=== PATIENT | female | born 1990 | race African-American/Black ===

== ENCOUNTER 2017-05-24 13:52 | Emergency (ER) | payer MEDICAID ==
[~2017-05-24] VITALS: Ht 172.7 cm; Wt 127.0 kg
[~2017-05-24 13:52] MED LIST: ALBUTEROL SULF8.5 GM INH; IBUPROFEN600 MG ORAL; NORCO 5-325 TA1 EACH ORAL; ZITHROMAX250 MG ORAL
[2017-05-24 14:18] VITALS: BP 149/95
[2017-05-24 14:44] LABS: BASOPHILS % (AUTO) 0.7 % (0.0-2.0); EOSINOPHILS % (AUTO) 2.9 % (0.0-3.0); HEMATOCRIT 33.3 % (37.0-47.0); MEAN CORPUSCULAR VOLUME 72 FL (80-99); MONOCYTES % (AUTO) 5.5 % (1.0-10.0); PLATELET COUNT 290 K/UL (150-450); RED BLOOD COUNT 4.64 M/UL (4.20-5.40); RED CELL DISTRIBUTION WIDTH 15.2 % (11.6-14.8); WHITE BLOOD COUNT 8.5 K/UL (4.8-10.8)
--- NOTE | 2017-05-24 15:08 | Diagnostic Imaging Report ---
Indication: Chest pain Comparison: 06/04/2013 A single view chest radiograph was obtained. Findings: Cardiomediastinal appearance is within normal limits for age. Pulmonary vascularity is appropriate. The diaphragmatic contour is smooth and costophrenic angles are sharp. No pleural effusions are identified. The bones are unremarkable. Impression: No acute findings
[2017-05-24 15:22] LABS: ANION GAP 9 mmol/L (5-15); BLOOD UREA NITROGEN 8 mg/dL (7-18); CALCIUM 9.2 MG/DL (8.5-10.1); CARBON DIOXIDE 29 MMOL/L (21-32); CHLORIDE 100 MMOL/L (98-107); CREATININE 0.8 MG/DL (0.55-1.30); SODIUM 138 MMOL/L (136-145)
[2017-05-24 15:32] VITALS: BP 135/75
[2017-05-24 15:36] LABS: ALANINE AMINOTRANSFERASE 26 U/L (12-78); ALBUMIN 3.4 G/DL (3.4-5.0); ALBUMIN/GLOBULIN RATIO 0.8 (1.0-2.7); ALKALINE PHOSPHATASE 135 U/L (46-116); ASPARTATE AMINO TRANSFERASE 9 U/L (15-37); BILIRUBIN,TOTAL 0.2 MG/DL (0.2-1.0); CKMB < 0.5 NG/ML (0.0-3.6); CREATINE KINASE 55 U/L (26-308)
[2017-05-24] MEDS ORDERED: IBUPROFEN600 MG ORAL (15:37)
[2017-05-24] MEDS ORDERED: KEFLEX500 MG ORAL (15:37)
[2017-05-24 15:44] LABS: APPEARANCE,URINE SLIGHTLY CLOUDY; BILIRUBIN, URINE NEGATIVE (NEGATIVE); COLOR,URINE PALE YELLOW; GLUCOSE, URINE (UA) 4+ (NEGATIVE); KETONES,URINE NEGATIVE (NEGATIVE); LEUKOCYTE ESTERASE ,URINE 2+ (NEGATIVE); NITRITE,URINE POSITIVE (NEGATIVE); PH,URINE 5 (4.5-8.0); PROTEIN,URINE 1+ (NEGATIVE); UROBILINOGEN,URINE NORMAL MG/DL (0.0-1.0)
--- NOTE | 2017-05-24 16:32 | Emergency Room Report ---
History of Present Illness General Chief Complaint: Chest Pain Source: Patient Present Illness HPI 27-year-old female presents ED waiting of chest pain times one week. States pain is localized to right side, worse with deep breaths. Also complains of pain in the shoulders bilaterally. 7/10, dull, nonradiating. Denies shortness of breath. Patient states history of diabetes. Patient is also complaining of a "cyst" to her left sided neck underneath her ear. Denies any pain. States has been there for one year. Denies alcohol or drug use. no other aggravating relieving factors. Denies any other associated symptoms Allergies: Coded Allergies: No Known Allergies (Unverified , 06/04/13) Patient History Past Medical History: DM, psych hx Past Surgical History: none Pertinent Family History: none Social History: Denies: smoking, alcohol use, drug use Last Menstrual Period: on period Now: No Immunizations: UTD Reviewed Nursing Documentation: PMH: Agreed, PSxH: Agreed Nursing Documentation-PMH Past Medical History: No History, Except For Hx Diabetes: Yes History Of Psychiatric Problem: Yes - Anxiety Review of Systems All Other Systems: negative except mentioned in HPI Physical Exam Vital Signs Date Time Temp Pulse Resp B/P (MAP) Pulse Ox O2 Delivery O2 Flow Rate FiO2 05/24/17 14:08 99.0 77 16 149/95 100 Room Air Sp02 EP Interpretation: reviewed, normal General Appearance: no apparent distress, alert, GCS 15, non-toxic Head: normocephalic, atraumatic Eyes: bilateral eye normal inspection, bilateral eye PERRL ENT: hearing grossly normal, normal pharynx, no angioedema, normal voice Neck: full range of motion, supple/symm/no masses Respiratory: lungs clear, normal breath sounds, speaking full sentences, other - reproducible R anterior chest wall pain Cardiovascular #1: regular rate, rhythm, no edema Cardiovascular #2: 2+ carotid (R), 2+ carotid (L), 2+ radial (R), 2+ radial (L) , 2+ dorsalis pedis (R), 2+ dorsalis pedis (L) Gastrointestinal: normal bowel sounds, non tender, soft, non-distended, no guarding, no rebound Rectal: deferred Genitourinary: normal inspection, no CVA tenderness Musculoskeletal: back normal, gait/station normal, normal range of motion, non- tender Neurologic: alert, oriented x3, responsive, motor strength/tone normal, sensory intact, speech normal Psychiatric: judgement/insight normal, memory normal, mood/affect normal, no suicidal/homicidal ideation Reflexes: 3+ bicep (R), 3+ bicep (L), 3+ tricep (R), 3+ tricep (L), 3+ knee (R) , 3+ knee (L) Skin: well hydrated, other - 1cm area of induration/erythema to under L ear. no fluctuance or discharge Lymphatic: no adenopathy Medical Decision Making Diagnostic Impression: Primary Impression: Abscess of scalp Additional Impression: Chest wall pain ER Course Hospital Course 27-year-old F presents ED complaining of chest pain x 1 week Differential diagnoses include: Rib fracture, PR/unstable angina, contusion, muscle strain Clinical course Patient placed on stretcher. After initial history and physical I ordered labs , EKG, chest x-ray. labs reviewed- glucose > 300, no DKA, troponins negative, no leukocytosis, hemoglobin/hematocrit stable EKG - NSR, no acute ischemic changes interpreted by me Chest x-ray-no cardiomegaly, no rib fracture, no pneumothorax, no acute process Pain is likely muscular which is consistent with my exam. Given patient's obesity and diabetes I believe it was prudent to check labs There is a area of induration and erythema underneath the left ear on the neck. Consistent with abscess. However not amenable to drainage at this time. Chronic x1 year. Recommend warm compresses and antibiotics. I. I feel this is a highly complex case requiring extensive working including EKG/Rhythm strip, Xray/CT/US, Blood/urine lab work, repeat exams while in ED, and administration of strong opiates/narcotics for pain control, admission to hospital or close patient follow up. Diagnosis - chest wall pain, abscess of scalp Stable and discharged to home with Rx Motrin Keflex. Instructed to followup with PMD. Return to ED if symptoms recur or worsen Labs Test 05/24/17 14:30 05/24/17 15:20 White Blood Count 8.5 K/UL (4.8-10.8) Red Blood Count 4.64 M/UL (4.20-5.40) Hemoglobin 10.0 G/DL (12.0-16.0) Hematocrit 33.3 % (37.0-47.0) Mean Corpuscular Volume 72 FL (80-99) Mean Corpuscular Hemoglobin 21.4 PG (27.0-31.0) Mean Corpuscular Hemoglobin Concent 29.9 G/DL (32.0-36.0) Red Cell Distribution Width 15.2 % (11.6-14.8) Platelet Count 290 K/UL (150-450) Mean Platelet Volume 10.4 FL (6.5-10.1) Neutrophils (%) (Auto) 59.0 % (45.0-75.0) Lymphocytes (%) (Auto) 32.0 % (20.0-45.0) Monocytes (%) (Auto) 5.5 % (1.0-10.0) Eosinophils (%) (Auto) 2.9 % (0.0-3.0) Basophils (%) (Auto) 0.7 % (0.0-2.0) Sodium Level 138 MMOL/L (136-145) Potassium Level 4.0 MMOL/L (3.5-5.1) Chloride Level 100 MMOL/L (98-107) Carbon Dioxide Level 29 MMOL/L (21-32) Anion Gap 9 mmol/L (5-15) Blood Urea Nitrogen 8 mg/dL (7-18) Creatinine 0.8 MG/DL (0.55-1.30) Estimat Glomerular Filtration Rate > 60 mL/min (>60) Glucose Level 338 MG/DL (74-106) Calcium Level 9.2 MG/DL (8.5-10.1) Total Bilirubin 0.2 MG/DL (0.2-1.0) Aspartate Amino Transf (AST/SGOT) 9 U/L (15-37) Alanine Aminotransferase (ALT/SGPT) 26 U/L (12-78) Alkaline Phosphatase 135 U/L (46-116) Total Creatine Kinase 55 U/L (26-308) Creatine Kinase MB < 0.5 NG/ML (0.0-3.6) Creatine Kinase MB Relative Index 0.9 Troponin I 0.000 ng/mL (0.000-0.056) Total Protein 7.5 G/DL (6.4-8.2) Albumin 3.4 G/DL (3.4-5.0) Globulin 4.1 g/dL Albumin/Globulin Ratio 0.8 (1.0-2.7) Urine Color Pale yellow Urine Appearance Slightly cloudy Urine pH 5 (4.5-8.0) Urine Specific [place] 1.020 (1.005-1.035) Urine Protein 1+ (NEGATIVE) Urine Glucose (UA) 4+ (NEGATIVE) Urine Ketones Negative (NEGATIVE) Urine Occult Blood 5+ (NEGATIVE) Urine Nitrite Positive (NEGATIVE) Urine Bilirubin Negative (NEGATIVE) Urine Urobilinogen Normal MG/DL (0.0-1.0) Urine Leukocyte Esterase 2+ (NEGATIVE) Urine RBC 10-15 /HPF (0 - 2) Urine WBC 5-10 /HPF (0 - 2) Urine Squamous Epithelial Cells Few /LPF (NONE/OCC) Urine Amorphous Sediment Few /LPF (NONE) Urine Bacteria Many /HPF (NONE) Urine HCG, Qualitative Negative EKG Diagnostic Results Rate: normal Rhythm: NSR ST Segments: no acute changes ASA given to the pt in ED: No Rhythm Strip Diag. Results EP Interpretation: yes Rhythm: NSR, no PVC's, no ectopy Chest X-Ray Diagnostic Results Chest X-Ray Diagnostic Results : Chest X-Ray Ordered: Yes # of Views/Limited/Complete: 1 View Indication: Chest Pain EP Interpretation: Yes Interpretation: no consolidation, no effusion, no pneumothorax, no acute cardiopulmonary disease Impression: No acute disease Electronically Signed by: Electronically signed by Slava Rush MD Last Vital Signs Date Time Temp Pulse Resp B/P (MAP) Pulse Ox O2 Delivery O2 Flow Rate FiO2 05/24/17 15:32 99.0 78 16 135/75 100 Room Air Status: improved Disposition: HOME, SELF-CARE Condition: Stable Scripts Cephalexin* (KEFLEX*) 500 Mg Capsule 500 MG ORAL Q6H, #28 CAP 0 Refills Prov: SLAVA RUSH M.D. 05/24/17 Ibuprofen* (MOTRIN*) 600 Mg Tablet 600 MG ORAL Q8H Y for For Pain, #30 TAB 0 Refills Prov: SLAVA RUSH M.D. 05/24/17 [facility]errals[facility] ([facility]P) Patient Instructions: Abscess, [id number], Chest Wall Pain, [id number] SLAVA RUSH M.D. May 24, 2017 16:32
--- NOTE | 2017-05-25 13:23 | Cardiology Report ---
APPROVED REPORT EKG Measurement Heart [id number] [id number] Normal sinus rhythm Nonspecific T wave abnormality Abnormal ECG
== END 2017-05-24 15:32 | disposition home or self-care (01) ==
LOC: EMR 14:20
DX: R07.89 Other chest pain (principal); L02.811 Cutaneous abscess of head [any part, except face]; E11.9 Type 2 diabetes mellitus without complications; F41.9 Anxiety disorder, unspecified
CPT/HCPCS: 36415; 71045; 80053; 81003; 81025; 82550; 82553; 84484; 85025; 87086; 87181; 93005; 99284

== ENCOUNTER 2018-10-25 15:49 | Emergency (ER) | payer MEDICAID ==
[~2018-10-25] VITALS: Ht 172.7 cm; Wt 129.3 kg
[~2018-10-25 15:49] MED LIST changes: +KEFLEX500 MG ORAL
[2018-10-25 16:00] VITALS: BP 130/63
--- NOTE | 2018-10-25 16:40 | NUR ---
ED Nurse Note: pt walked in c/o rt breast pain mica collins done blood and urine sent to lab.
[2018-10-25] MEDS ORDERED: Vancomycin 1.5gm Premix 275 ML IVPB ONE (16:45)
[2018-10-25 17:29] LABS: APPEARANCE,URINE SLIGHTLY CLOUDY; BASOPHILS % (AUTO) 1.6 % (0.0-2.0); BILIRUBIN, URINE NEGATIVE (NEGATIVE); COLOR,URINE PALE YELLOW; EOSINOPHILS % (AUTO) 2.4 % (0.0-3.0); GLUCOSE, URINE (UA) 4+ (NEGATIVE); HEMATOCRIT 33.5 % (37.0-47.0); HEMOGLOBIN 10.8 G/DL (12.0-16.0); KETONES,URINE NEGATIVE (NEGATIVE); LEUKOCYTE ESTERASE ,URINE 2+ (NEGATIVE); LYMPHOCYTES % (AUTO) 24.4 % (20.0-45.0); MEAN CORPUSCULAR VOLUME 71 FL (80-99); MONOCYTES % (AUTO) 5.2 % (1.0-10.0); NEUTROPHILS % (AUTO) 66.3 % (45.0-75.0); NITRITE,URINE NEGATIVE (NEGATIVE); PH,URINE 6 (4.5-8.0); PLATELET COUNT 360 K/UL (150-450); PROTEIN,URINE 1+ (NEGATIVE); RED BLOOD COUNT 4.73 M/UL (4.20-5.40); RED CELL DISTRIBUTION WIDTH 13.5 % (11.6-14.8); UROBILINOGEN,URINE NORMAL MG/DL (0.0-1.0); WHITE BLOOD COUNT 10.1 K/UL (4.8-10.8)
[2018-10-25 17:39] LABS: ANION GAP 11 mmol/L (5-15); BLOOD UREA NITROGEN 8 mg/dL (7-18); CALCIUM 9.8 MG/DL (8.5-10.1); CARBON DIOXIDE 25 MMOL/L (21-32); CHLORIDE 100 MMOL/L (98-107); CREATININE 0.7 MG/DL (0.55-1.30); POTASSIUM 3.9 MMOL/L (3.5-5.1); SODIUM 136 MMOL/L (136-145)
[2018-10-25 17:44] LABS: ALANINE AMINOTRANSFERASE 19 U/L (12-78); ALBUMIN 3.8 G/DL (3.4-5.0); ALBUMIN/GLOBULIN RATIO 1.1 (1.0-2.7); ALKALINE PHOSPHATASE 139 U/L (46-116); ASPARTATE AMINO TRANSFERASE 10 U/L (15-37); BILIRUBIN,TOTAL 0.2 MG/DL (0.2-1.0); CREATINE KINASE 46 U/L (26-308)
[2018-10-25] MEDS ORDERED: Morphine Sulfate 4mg/ml Inj (IV USE ONLY) IVP ONE ×2 (17:45→23:30)
--- NOTE | 2018-10-25 17:54 | Emergency Room Report ---
History of Present Illness General Chief Complaint: Skin Rash/Abscess Source: Medical Record (Elvira Sher) Present Illness HPI 28-year-old female presents to the emergency department complaining of progressive pain, swelling, erythema and tenderness to the right breast over the course of 2 weeks. Patient reports that last week she was evaluated at an urgent care and placed on Bactrim for cellulitis. Patient states that her symptoms have not resolved she denies fevers but reports chills. Patient states she now has an opening in the skin which is draining that she just found approximately 1 hour ago. Patient denies history of immune compromise. Denies nipple discharge however she states a few months ago she had similar infection that had nipple discharge which she did not get evaluated for and it resolved on her own. She reports pain is exacerbated with palpation or movement she gets some mild relief by holding/lifting the breast up slightly. She denies hx of Cancer, she is not currently breast feeding. Pt. with hx of Dm type 2, supposed to be taking Metformin but is non compliant. (Elvira Sher) Allergies: Coded Allergies: No Known Allergies (Unverified , 06/04/13) Patient History Past Medical History: see triage record, DM Past Surgical History: none Pertinent Family History: none Last Menstrual Period: 10/19/18 Now: No Reviewed Nursing Documentation: PMH: Agreed; PSxH: Agreed (Elvira Sher) Nursing Documentation-PMH Past Medical History: No History, Except For Hx Diabetes: Yes (Elvira Sher) Review of Systems All Other Systems: negative except mentioned in HPI (Elvira Sher) Physical Exam Vital Signs Date Time Temp Pulse Resp B/P (MAP) Pulse Ox O2 Delivery O2 Flow Rate FiO2 10/25/18 16:00 98.2 84 16 130/63 (85) 98 Room Air Sp02 EP Interpretation: reviewed, normal General Appearance: alert, GCS 15, non-toxic, moderate distress Head: normocephalic, atraumatic Eyes: bilateral eye normal inspection, bilateral eye PERRL ENT: hearing grossly normal, normal voice Neck: full range of motion Respiratory: lungs clear, normal breath sounds, speaking full sentences, other - TTP to the right breast, swelling, erythema, induration, warmth of breast tissue and partially the nipple. there is a superficial ulcer which is draining straw colored d/c, no blisters or vesicles. area of erythema approximately 12cm Cardiovascular #1: regular rate, rhythm, no edema Musculoskeletal: back normal, gait/station normal, normal range of motion Neurologic: alert, oriented x3, responsive, motor strength/tone normal, sensory intact, speech normal, grossly normal Psychiatric: judgement/insight normal Skin: no rash, warm/dry, well hydrated, other - Right breast, swelling, erythema, induration, warmth of breast tissue and partially the nipple. there is a superficial ulcer which is draining straw colored d/c, no blisters or vesicles. area of erythema approximately 12cm (Elvira Sher) Medical Decision Making PA Attestation Dr. Dunlap is my supervising Physician whom patient management has been discussed with. (Elvira Sher) Diagnostic Impression: Primary Impression: Breast abscess Additional Impressions: UTI (urinary tract infection) Qualified Codes: N30.01 - Acute cystitis with hematuria Hyperglycemia ER Course 28-year-old female presents to the emergency department complaining of progressive pain, swelling, erythema and tenderness to the right breast over the course of 2 weeks. Patient reports that last week she was evaluated at an urgent care and placed on Bactrim for cellulitis. Patient states that her symptoms have not resolved she denies fevers but reports chills. Patient states she now has an opening in the skin which is draining that she just found approximately 1 hour ago. Patient denies history of immune compromise. Denies nipple discharge however she states a few months ago she had similar infection that had nipple discharge which she did not get evaluated for and it resolved on her own. She reports pain is exacerbated with palpation or movement she gets some mild relief by holding/lifting the breast up slightly. She denies hx of Cancer, she is not currently breast feeding. Pt. with hx of Dm type 2, supposed to be taking Metformin but is non compliant. Ddx considered but are not limited to cellulitis, abscess, cystic acne, necrotizing fasciitis, insect bite. Vital signs: are WNL, pt. is afebrile H&PE are most consistent with Right breast abscess which is failing outpatient oral abx. ORDERS: -CBC: unremarkable -CMP: elevated glucose 300 -Lactic acid: WNL -Troponin: WNL -Blood Cultures: pending. -UA: positive for UTI ED INTERVENTIONS: -IV Vancomycin 1.5g - Morphine 4mg -1 liter NS DISPOSITION: at this time pt. will be admitted to Dr. Rogers for Right breast abscess. Dr. Rogers agreed to admit the pt. and to continue pt. care management. Labs Test 10/25/18 17:00 White Blood Count 10.1 K/UL (4.8-10.8) Red Blood Count 4.73 M/UL (4.20-5.40) Hemoglobin 10.8 G/DL (12.0-16.0) Hematocrit 33.5 % (37.0-47.0) Mean Corpuscular Volume 71 FL (80-99) Mean Corpuscular Hemoglobin 22.8 PG (27.0-31.0) Mean Corpuscular Hemoglobin Concent 32.2 G/DL (32.0-36.0) Red Cell Distribution Width 13.5 % (11.6-14.8) Platelet Count 360 K/UL (150-450) Mean Platelet Volume 8.2 FL (6.5-10.1) Neutrophils (%) (Auto) 66.3 % (45.0-75.0) Lymphocytes (%) (Auto) 24.4 % (20.0-45.0) Monocytes (%) (Auto) 5.2 % (1.0-10.0) Eosinophils (%) (Auto) 2.4 % (0.0-3.0) Basophils (%) (Auto) 1.6 % (0.0-2.0) Urine Color Pale yellow Urine Appearance Slightly cloudy Urine pH 6 (4.5-8.0) Urine Specific [place] 1.020 (1.005-1.035) Urine Protein 1+ (NEGATIVE) Urine Glucose (UA) 4+ (NEGATIVE) Urine Ketones Negative (NEGATIVE) Urine Blood 1+ (NEGATIVE) Urine Nitrite Negative (NEGATIVE) Urine Bilirubin Negative (NEGATIVE) Urine Urobilinogen Normal MG/DL (0.0-1.0) Urine Leukocyte Esterase 2+ (NEGATIVE) Urine RBC 10-15 /HPF (0 - 2) Urine WBC 5-10 /HPF (0 - 2) Urine Squamous Epithelial Cells Many /LPF (NONE/OCC) Urine Bacteria Moderate /HPF (NONE) Sodium Level 136 MMOL/L (136-145) Potassium Level 3.9 MMOL/L (3.5-5.1) Chloride Level 100 MMOL/L (98-107) Carbon Dioxide Level 25 MMOL/L (21-32) Anion Gap 11 mmol/L (5-15) Blood Urea Nitrogen 8 mg/dL (7-18) Creatinine 0.7 MG/DL (0.55-1.30) Estimat Glomerular Filtration Rate > 60 mL/min (>60) Glucose Level 300 MG/DL (74-106) Lactic Acid Level 1.20 mmol/L (0.4-2.0) Calcium Level 9.8 MG/DL (8.5-10.1) Total Bilirubin 0.2 MG/DL (0.2-1.0) Aspartate Amino Transf (AST/SGOT) 10 U/L (15-37) Alanine Aminotransferase (ALT/SGPT) 19 U/L (12-78) Alkaline Phosphatase 139 U/L (46-116) Total Creatine Kinase 46 U/L (26-308) Troponin I 0.000 ng/mL (0.000-0.056) Total Protein 7.4 G/DL (6.4-8.2) Albumin 3.8 G/DL (3.4-5.0) Globulin 3.6 g/dL Albumin/Globulin Ratio 1.1 (1.0-2.7) (Elvira Sher) ER Course Patient presented for left breast pain and swelling. Patient was noted to have what appears to be a ulceration to the right nipple. There appears to be some abscess as well. Patient will be transferred to outside facility for further evaluation and treatment for her breast infection and further evaluation for possible underlying malignancy. Patient appears to be stable for transfer and have been given IV antibiotics in the emergency department. She is also given medications for pain. Patient also noted to be diabetic.Patient was discussed with [facility] who agreed to accept the patient for transfer. Labs Test 10/25/18 17:00 White Blood Count 10.1 K/UL (4.8-10.8) Red Blood Count 4.73 M/UL (4.20-5.40) Hemoglobin 10.8 G/DL (12.0-16.0) Hematocrit 33.5 % (37.0-47.0) Mean Corpuscular Volume 71 FL (80-99) Mean Corpuscular Hemoglobin 22.8 PG (27.0-31.0) Mean Corpuscular Hemoglobin Concent 32.2 G/DL (32.0-36.0) Red Cell Distribution Width 13.5 % (11.6-14.8) Platelet Count 360 K/UL (150-450) Mean Platelet Volume 8.2 FL (6.5-10.1) Neutrophils (%) (Auto) 66.3 % (45.0-75.0) Lymphocytes (%) (Auto) 24.4 % (20.0-45.0) Monocytes (%) (Auto) 5.2 % (1.0-10.0) Eosinophils (%) (Auto) 2.4 % (0.0-3.0) Basophils (%) (Auto) 1.6 % (0.0-2.0) Urine Color Pale yellow Urine Appearance Slightly cloudy Urine pH 6 (4.5-8.0) Urine Specific [place] 1.020 (1.005-1.035) Urine Protein 1+ (NEGATIVE) Urine Glucose (UA) 4+ (NEGATIVE) Urine Ketones Negative (NEGATIVE) Urine Blood 1+ (NEGATIVE) Urine Nitrite Negative (NEGATIVE) Urine Bilirubin Negative (NEGATIVE) Urine Urobilinogen Normal MG/DL (0.0-1.0) Urine Leukocyte Esterase 2+ (NEGATIVE) Urine RBC 10-15 /HPF (0 - 2) Urine WBC 5-10 /HPF (0 - 2) Urine Squamous Epithelial Cells Many /LPF (NONE/OCC) Urine Bacteria Moderate /HPF (NONE) Sodium Level 136 MMOL/L (136-145) Potassium Level 3.9 MMOL/L (3.5-5.1) Chloride Level 100 MMOL/L (98-107) Carbon Dioxide Level 25 MMOL/L (21-32) Anion Gap 11 mmol/L (5-15) Blood Urea Nitrogen 8 mg/dL (7-18) Creatinine 0.7 MG/DL (0.55-1.30) Estimat Glomerular Filtration Rate > 60 mL/min (>60) Glucose Level 300 MG/DL (74-106) Lactic Acid Level 1.20 mmol/L (0.4-2.0) Calcium Level 9.8 MG/DL (8.5-10.1) Total Bilirubin 0.2 MG/DL (0.2-1.0) Aspartate Amino Transf (AST/SGOT) 10 U/L (15-37) Alanine Aminotransferase (ALT/SGPT) 19 U/L (12-78) Alkaline Phosphatase 139 U/L (46-116) Total Creatine Kinase 46 U/L (26-308) Troponin I 0.000 ng/mL (0.000-0.056) Total Protein 7.4 G/DL (6.4-8.2) Albumin 3.8 G/DL (3.4-5.0) Globulin 3.6 g/dL Albumin/Globulin Ratio 1.1 (1.0-2.7) (Blaine Dunlap MD) Last Vital Signs Date Time Temp Pulse Resp B/P (MAP) Pulse Ox O2 Delivery O2 Flow Rate FiO2 10/25/18 16:00 98.2 84 16 130/63 98 Room Air (Elvira Sher) Status: unchanged (Blaine Dunlap MD) Disposition: XFER SHT-TRM HOSP Condition: Serious [facility]errals: [facility] (PCP) Elvira Sher Oct 25, 2018 17:54 Blaine Dunlap MD Oct 25, 2018 21:17
[2018-10-25] MEDS ORDERED: HYDROcodone/Acetamin 7.5/325 tab ORAL ONE (18:45)
--- NOTE | 2018-10-25 18:49 | NUR ---
Spoke with Marta at [facility]-gave all necessary information , will call us back with transfer information.
--- NOTE | 2018-10-25 19:17 | NUR ---
HAND-OFF: Report given to Mary AGUILAR.
--- NOTE | 2018-10-25 19:24 | NUR ---
ED Nurse Note: Received report from Katie AGUILAR. Pt in bed c/o pain 02/20. See eMAR for admin protocol. CN made aware that pt is transferring to [facility] and that transportation is being scheduled. Awaiting further instruction and ETA. Will continue to monitor.
--- NOTE | 2018-10-25 21:05 | NUR ---
ED Nurse Note: Pt resting in bed. IVF running at precscribed rate. Pt's family at bedside. Still awaiting pickup; ETA [id number]. Will continue to monitor.
[2018-10-25 22:10] VITALS: BP 150/93
--- NOTE | 2018-10-25 22:16 | NUR ---
ED Nurse Note: called and gave report to Megan AGUILAR at [facility]. Still awaiting [facility] pickup.
--- NOTE | 2018-10-25 22:21 | NUR ---
ED Nurse Note: New [facility] pickup ETA is 2300.
--- NOTE | 2018-10-25 23:32 | NUR ---
ED Nurse Note: Pt left via [facility] to [facility]. Report given to [facility] personnel as well as packet. Pt refused pain Rx at last minute saying she wanted to hurry and get to the other hospital. Pt stable.
== END 2018-10-25 23:31 | disposition short-term general hospital (02) ==
LOC: EMR 17:10
DX: N61.1 Abscess of the breast and nipple (principal); N30.01 Acute cystitis with hematuria; E11.65 Type 2 diabetes mellitus with hyperglycemia
CPT/HCPCS: 36415; 80053; 81003; 82550; 82962; 83605; 84484; 85025; 87040; 87086; 96361; 96365; 96375; 99285; J2270; J3370